=== PATIENT | male | born 1990 | race Caucasian/White ===

== ENCOUNTER 2018-08-09 11:06 | Emergency (ER) | payer MEDICAID ==
[~2018-08-09] VITALS: Ht 172.7 cm; Wt 60.8 kg
[2018-08-09 11:10] VITALS: BP_SYST 148
--- NOTE | 2018-08-09 11:10 | NUR ---
BROUGHT BACK TO BED #4 AND TRIAGED. REPORT GIVEN TO DAISHA
[2018-08-09] MEDS ORDERED: APIX5TAB4 PO (11:29)
--- NOTE | 2018-08-09 11:35 | NUR ---
WENDI Servin at bedside examining patient.
--- NOTE | 2018-08-09 11:36 | NUR ---
Patient presented to ER with Emesis with blood. Patient alert and oriented, ambulatory to ER, afebrile skin pink, respirations equal bilat, pain 10/10. 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 Patient states abdominal pain is 10/10, patient also states he has hx of yaking oral depecote but ran out of perscription.
[2018-08-09] MEDS ORDERED: ONDANSETRON HCL 4 MG/2 ML VIAL IVP ONE (11:45)
[2018-08-09] MEDS ORDERED: NACL 0.9% 1,000 ML IV ONE (11:45)
[2018-08-09] MEDS ORDERED: MORPHINE 4 MG/ML INJ. SYRINGE IVP ONE (11:45)
[2018-08-09 12:15] LABS: BASOPHILS % (AUTO) 0.3 % (0.0-2.0); BILIRUBIN,URINE NEGATIVE (NEGATIVE); BLOOD, URINE NEGATIVE (NEGATIVE); CLARITY/URINE SL HAZY (CLEAR); COLOR,URINE YELLOW (YELLOW); EOSINOPHILS % (AUTO) 0.3 % (0.0-4.0); GLUCOSE,URINE NEGATIVE (NEGATIVE); HEMOGLOBIN 16.7 g/dL (14.0-18.0); KETONES,URINE NEGATIVE (NEGATIVE); LEUKOCYTE ESTERASE ,URINE NEGATIVE (NEGATIVE); LYMPHOCYTES # (AUTO) 1.1 K/uL (1.0-5.5); LYMPHOCYTES % (AUTO) 15.5 % (20.5-51.5); MEAN CORPUSCULAR HEMOGLOBIN 32 pg (27-31); MEAN CORPUSCULAR HGB CONC 35 % (32-36); MEAN CORPUSCULAR VOLUME 91 fL (79.0-98.0); MONOCYTES # (AUTO) 0.6 K/uL (0.0-1.0); MONOCYTES % (AUTO) 8.1 % (1.7-9.3); NEUTROPHILS # (AUTO) 5.5 K/uL (1.8-7.7); NEUTROPHILS % (AUTO) 75.8 % (40.0-70.0); NITRITE, URINE NEGATIVE (NEGATIVE); PH,URINE 8.5 (5.0-8.0); PLATELET COUNT (AUTO) 196 K/uL (130-430); PROTEIN URINE NEGATIVE (NEGATIVE); RED BLOOD CELL COUNT(AUTO) 5.25 MIL/uL (4.2-6.2); RED CELL DISTRIBUTION WIDTH 13.4 % (9.0-15.0); UROBILINOGEN,URINE 0.2 (0.2-1.0); WHITE BLOOD COUNT (AUTO) 7.2 K/uL (4.8-10.8)
[2018-08-09 12:28] LABS: BARBITURATE, URINE NEGATIVE (NEG <=200); BENZODIAZEPINE, URINE NEGATIVE (NEG <=150); CANNABINOID, URINE NEGATIVE (NEG <=50); COCAINE, URINE NEGATIVE (NEG <=150); METHAMPHETAMINES SCREEN,URINE NEGATIVE (NEG <=500); OPIATE, URINE NEGATIVE (NEG <=100); PHENCYCLIDINE SCREEN,URINE NEGATIVE (NEG <=25); UR TRICYCLIC ANTIDEPRESSANTS NEGATIVE (NEG <=300); URINE AMPHETAMINE NEGATIVE (NEG <=500); URINE METHADONE NEGATIVE (NEG <=200); URINE OXYCODONE SCREEN NEGATIVE (NEG <=100); URINE PROPOXYPHENE SCREEN NEGATIVE (NEG <=300)
[2018-08-09 12:43] LABS: ANION GAP 8 (5-15); CHLORIDE 102 mmol/L (98-107); GLUCOSE 95 mg/dL (70-99); POTASSIUM 4.1 mmol/L (3.5-5.1); SODIUM SERUM 136 mmol/L (136-145)
[2018-08-09 12:44] LABS: ALANINE AMINOTRANSFERASE 30 U/L (12-78); ASPARTATE AMINOTRANSFERASE 21 U/L (10-37); CALCIUM 9.5 mg/dL (8.4-11.0); CREATININE 1.06 mg/dL (0.55-1.30); GFR AFRICAN AMERICAN 107 mL/min (>90); TOTAL BILIRUBIN 0.5 mg/dL (0.0-1.0); UREA NITROGEN, BLOOD 11 mg/dL (8-21)
--- NOTE | 2018-08-09 12:50 | NUR ---
CONSENT FOR CTA DONE. PT HAS HAD CONTRAST DYE BEFORE WITHOUT ISSUES
[2018-08-09] MEDS ORDERED: IOHEXOL 350 mgI/mL, 150 ML INFUS..BTL IV ONE (12:56)
--- NOTE | 2018-08-09 13:45 | NUR ---
Patient given written and verbal discharge instructions and verbalizes understanding. ER MD discussed with patient the results and treatment provided. Patient in stable condition. ID arm band removed. IV catheter removed intact and dressing applied, no active bleeding. Rx of Zofran & MiraLax given. Patient educated on pain management and to follow up with PMD. Pain Scale 2/10 tolerable for patient.. Opportunity for questions provided and answered. Medication side effect fact sheet provided.
[2018-08-09] MEDS ORDERED: LACTULOSE 20 GM/30 ML UDC PO ONE (14:15)
[2018-08-09 14:45] VITALS: BP_SYST 145
== END 2018-08-09 13:45 | disposition home or self-care (01) ==
LOC: SED 11:06
DX: K92.2 Gastrointestinal hemorrhage, unspecified (principal); K92.0 Hematemesis; K59.00 Constipation, unspecified; R07.89 Other chest pain; F17.210 Nicotine dependence, cigarettes, uncomplicated; R03.0 Elevated blood-pressure reading, without diagnosis of hypertension; Z71.6 Tobacco abuse counseling
CPT/HCPCS: 36415; 71275; 74177; 80053; 80307; 81003; 84484; 85025; 93005; 96361; 96372; 96374; 99284; J2270; J2405; J7030; Q9967; 96375